=== PATIENT | male | born 1965 | race American Indian/Alaskan Native ===

== ENCOUNTER 2018-10-02 21:48 | Inpatient (IN) | payer MEDICARE ==
--- NOTE | 2018-10-02 22:29 | Emergency Department Report ---
Chief Complaint: Medical Clearance Stated Complaint: DIZZY, NEEDS DIALYSIS - HPI History of Present Illness: esrd pt no hd in 1.5 week co cp and sob to main MSE screening note: Focused history and physical exam performed. Due to findings the following was ordered: ED Disposition for MSE Condition: Stable
--- NOTE | 2018-10-03 00:08 | XRay Report ---
PROCEDURE: XR CHEST ROUTINE 2V TECHNIQUE: PA and lateral chest radiographs were obtained. HISTORY: sob COMPARISONS: None. FINDINGS: Heart: Heart is enlarged. Mediastinum/Vessels: Normal. Lungs/Pleural space: There is focal scarring or atelectasis at the left lung base. There are no infi ltrates, effusions or pneumothoraces.. Bony thorax: No acute osseous abnormality. IMPRESSION: Heart is enlarged. There is focal scarring or atelectasis at the left lung base. There are no infiltrates, effusions or pneumothoraces... This document is electronically signed by Maykel Lucio MD., October 03 2018 12:06:09 AM ET
[2018-10-03 01:16] LABS: Hematocrit 25.8 % (35.5-45.6); Hemoglobin 8.6 gm/dl (11.8-15.2); Mean Corpuscular HGB Conc 34 % (32-34); Mean Corpuscular Volume 99 fl (84-94); Platelet Count 287 K/mm3 (140-440); Red Blood Count 2.61 M/mm3 (3.65-5.03); Red Cell Distribution Width 18.7 % (13.2-15.2)
[2018-10-03 01:25] LABS: Albumin 3.6 g/dL (3.9-5); Calcium 7.6 mg/dL (8.4-10.2)
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
[2018-10-03] MEDS ORDERED: KIONEX PO ONE (04:50)
[2018-10-03] MEDS ORDERED: D50W (25GM) Vial IV ONE (08:39)
[2018-10-03] MEDS ORDERED: HumuLIN R IV STA (08:39)
--- NOTE | 2018-10-03 08:40 | History and Physical Report ---
History of Present Illness Date of examination: 10/03/18 Date of admission: 10/03/18 05:05 Chief complaint: Shortness of breath, gen weakness, missed dialysis History of present illness: Patient is 53 yo with HIV, ESRD on hemodialysis. He states that he has missed h emodialysis for 2 weeks, since he moved here from [place]. He presents with shortness of breath, occurs at rest and worse on exertion. He denies chest pain. No diaphoresis. No fever. He was evaluated in ED found to have Creatinine of 22.9 and potassium of 5.9. He was given Kayexalate for hyperkalemia. Patient states he does not have established Hemodialysis Center in [place], [place]. Will admit and consult nephrology and case management. Past History Past Medical History: ESRD, HIV/AIDS, hypertension Past Surgical History: hernia repair, Other (av fistula for dialysis) Social history: , full code. denies: smoking, alcohol abuse Family history: no significant family history Medications and Allergies Allergies Allergy/AdvReac Type Severity Reaction Status Date / Time No Known Allergies Allergy Verified 01/07/16 11:14 Home Medications Medication Instructions Recorded Confirmed Last Taken Type No Known Home Medications [No 10/03/18 10/03/18 Unknown History Reported Home Medications] Exam - Physical Exam Narrative exam: Gen: Not in acute distress, lying in bed HEENT: Normocephalic, atraumatic Neck: supple, no JVD Heart: S1 and S2 reg, no murmurs, rubs or gallop Lungs: Clear, no crackles Abd: soft, non tender, non distended, normal BS Ext: No edema, no clubbing, no cyanosis, left arm av fistula Neuro: AAO x 3, no focal signs, moves all ext Psych:Normal mood - Constitutional Vitals: Temp Pulse Resp BP Pulse Ox 97.5 F L 101 H 18 171/97 98 10/03/18 08:30 10/03/18 08:30 10/03/18 08:30 10/03/18 08:30 10/03/18 08:30 Results - Labs CBC & Chem 7: 10/04/18 05:25 10/04/18 05:25 Labs: Abnormal lab results 10/03/18 10/03/18 Range/Units 00:46 00:46 RBC 2.61 L (3.65-5.03) M/mm3 Hgb 8.6 L (11.8-15.2) gm/dl Hct 25.8 L (35.5-45.6) % MCV 99 H (84-94) fl MCH 33 H (28-32) pg RDW 18.7 H (13.2-15.2) % Potassium 5.8 H (3.6-5.0) mmol/L Chloride 97.9 L (98-107) mmol/L Carbon Dioxide 19 L (22-30) mmol/L BUN 106 H (9-20) mg/dL Creatinine 22.9 H (0.8-1.5) mg/dL Calcium 7.6 L (8.4-10.2) mg/dL Phosphorus 7.10 H (2.5-4.5) mg/dL Albumin 3.6 L (3.9-5) g/dL Assessment and Plan Hyperkalemia Potassium 5.9 Admit kayexalate given Insulin iv Calcium gluconate ESRD on hemodialysis Missed dialysis X 2 weeks since he moved here from [place]. Does not have established dialysis center in [place] Nephrology consulted case management HIV To obtain list of HAART and resume HTN Monitor BP Start Norvasc his home med list not available Full code status
[2018-10-03] MEDS ORDERED: ZOFRAN IV PRN (08:51)
[2018-10-03] MEDS ORDERED: SODIUM CHLORIDE FLUSH SYRINGE 10 ML IV PRN (08:51)
[2018-10-03] MEDS ORDERED: TYLENOL PO PRN (08:51)
[2018-10-03] MEDS ORDERED: PROVENTIL IH PRN (08:51)
[2018-10-03] MEDS ORDERED: D50W (25GM) Syringe IV ONE (09:00)
[2018-10-03] MEDS ORDERED: CALCIUM GLUCONATE 1,000 MG in NACL 0.9% 100 ML IV ONE (10:00)
[2018-10-03] MEDS: SODIUM CHLORIDE FLUSH SYRINGE 10 ML IV SCH ×2 (10:08→21:00)
[2018-10-03 13:30] LABS: Hepatitis B Surface Antigen Non-Reactive (Negative); Hepatitis C Virus Antibody Non-Reactive (NonReactive)
--- NOTE | 2018-10-03 13:57 | Consultation ---
History of Present Illness - History of Present Illness 53-year-old gentleman with medical history significant for hypertension, end- stage renal disease on dialysis [facility] on Monday via a left arm AV fistula recently moved from [facility] 2 weeks ago has not had dialysis for the past 2 weeks presents today requesting dialysis. Reports did not have dialysis placement prior to his move admits to weight gain shortness of breath doesn't have his prescriptions. Labs significant for hyperkalemia associated orthopnea denies fevers chills denies any chest pain Past History Past Medical History: ESRD, HIV/AIDS, hypertension Past Surgical History: hernia repair, Other (av fistula for dialysis) Social history: , full code. denies: smoking, alcohol abuse Family history: no significant family history Medications and Allergies Allergies Allergy/AdvReac Type Severity Reaction Status Date / Time No Known Allergies Allergy Verified 01/07/16 11:14 Home Medications Medication Instructions Recorded Confirmed Last Taken Type No Known Home Medications [No 10/03/18 10/03/18 Unknown History Reported Home Medications] Active Meds: Active Medications Acetaminophen (Tylenol) 650 mg PO Q4H PRN PRN Reason: Pain MILD(1-3)/Fever >100.5/BLOOD Acetaminophen/Hydrocodone Bitart ([place] 5/325) 1 each PO Q6H PRN PRN Reason: Pain, Moderate (4-6) Albuterol (Proventil) 2.5 mg IH Q4HRT PRN PRN Reason: Shortness Of Breath Ondansetron HCl (Zofran) 4 mg IV Q8H PRN PRN Reason: Nausea And Vomiting Sodium Chloride (Sodium Chloride Flush Syringe 10 Ml) 10 ml IV BID ONELIA Last Admin: 10/03/18 10:08 Dose: 10 ml Documented by: Sodium Chloride (Sodium Chloride Flush Syringe 10 Ml) 10 ml IV PRN PRN PRN Reason: LINE FLUSH Review of Systems Constitutional: no weight loss, no weight gain Cardiovascular: edema, shortness of breath, no chest pain, no orthopnea Respiratory: no cough, no cough with sputum Gastrointestinal: no abdominal pain, no nausea, no vomiting Genitourinary Male: no dysuria, no hematuria Musculoskeletal: no neck stiffness, no neck pain Integumentary: no deferred, no rash Neurological: no head injury, no transient paralysis Psychiatric: no anxiety Endocrine: no cold intolerance Allergic/Immunologic: no urticaria Exam - Vital Signs Vital signs: Vital Signs Temp Pulse Resp BP Pulse Ox 98.3 F 95 H 18 163/96 98 10/02/18 22:28 10/02/18 22:28 10/02/18 22:28 10/02/18 22:28 10/02/18 22:28 - General Appearance General appearance: well-developed, well-nourished EENT: ATNC, PERRL Neck: Present: neck supple Respiratory: Clear to Ascultation Heart: regular, S1S2 Gastrointestinal: Present: normal, normoactive bowel sounds Integumentary: no rash Neurologic: alert and oriented x3, CN 3-12 intact Musculoskeletal: Present: deferred Psychiatric: mood/affect appropriate Results - Lab Results 10/03/18 00:46 10/03/18 00:46 Most recent lab results Calcium 7.6 mg/dL (8.4-10.2) L 10/03/18 00:46 Phosphorus 7.10 mg/dL (2.5-4.5) H 10/03/18 00:46 - Image Kidney/bladder ultrasound: other (I reviewed CXR with cardiomegaly ,hazy opacities. ) Assessment and Plan - Patient Problems (1) ESRD (end stage renal disease) Current Visit: Yes Status: Acute Plan to address problem: End-stage renal disease Accesses left arm AV fistula Will initiate dialysis (2) Hyperkalemia Current Visit: Yes Status: Acute Plan to address problem: Hyperkalemia secondary to end-stage renal disease Received albuterol and calcium gluconate We'll initiate dialysis (3) HIV (human immunodeficiency virus infection) Current Visit: No Status: Acute Plan to address problem: HIV infection noted per chart Obtain HIV serologies Infectious disease evaluation (4) Acidosis Current Visit: Yes Status: Acute Plan to address problem: Acidosis secondary to renal failure in the setting of missed hemodialysis We'll initiate dialysis (5) Anemia in chronic kidney disease Current Visit: Yes Status: Acute Qualifiers: Chronic kidney disease stage: on chronic dialysis Qualified Code(s): N18.6 - End stage renal disease; D63.1 - Anemia in chronic kidney disease; Z99.2 - D ependence on renal dialysis Plan to address problem: Moderate anemia hemoglobin is 8.6g/dl Will initiate Epogen 20,000 units session of dialysis
--- NOTE | 2018-10-03 17:27 | Event Note ---
Hemodialysis note 53 year old with ESRD on hemodialysis in [place] recently moved to [place] BP: 172/89 Patient seen on dialysis Denies any complaints UF: 4L over 4hrs.
[2018-10-03] MEDS ORDERED: APRESOLINE IV PRN (18:47)
[2018-10-03] MEDS: APRESOLINE PO SCH ×2 (20:55→22:00)
[2018-10-03] MEDS: NORVASC PO SCH (20:56)
[2018-10-04 05:56] LABS: Basophils % (Auto) 0.4 % (0.0-1.8); Eosinophils # (Auto) 0.1 K/mm3 (0.0-0.4); Eosinophils % (Auto) 1.5 % (0.0-4.3); Hematocrit 25.6 % (35.5-45.6); Hemoglobin 8.6 gm/dl (11.8-15.2); Lymphocytes # (Auto) 1.2 K/mm3 (1.2-5.4); Lymphocytes % (Auto) 31.6 % (13.4-35.0); Mean Corpuscular HGB Conc 34 % (32-34); Mean Corpuscular Volume 98 fl (84-94); Monocytes # (Auto) 0.6 K/mm3 (0.0-0.8); Monocytes % (Auto) 14.8 % (0.0-7.3); Platelet Count 294 K/mm3 (140-440); Red Cell Distribution Width 18.2 % (13.2-15.2)
[2018-10-04 06:10] LABS: Calcium 8.4 mg/dL (8.4-10.2)
[2018-10-04] MEDS: APRESOLINE PO SCH ×3 (06:17→22:21)
[2018-10-04] MEDS ORDERED: NACL 0.9% 100 ML IV PRN (09:11)
[2018-10-04] MEDS: SODIUM CHLORIDE FLUSH SYRINGE 10 ML IV SCH ×2 (10:00→22:22)
--- NOTE | 2018-10-04 10:39 | Progress Note ---
Assessment and Plan - Patient Problems (1) ESRD (end stage renal disease) Current Visit: Yes Status: Acute (2) Hyperkalemia Current Visit: Yes Status: Acute (3) HIV (human immunodeficiency virus infection) Current Visit: No Status: Acute (4) Acidosis Current Visit: Yes Status: Acute (5) Anemia in chronic kidney disease Current Visit: Yes Status: Acute Qualifiers: Chronic kidney disease stage: on chronic dialysis Qualified Code(s): N18.6 - End stage renal disease; D63.1 - Anemia in chronic kidney disease; Z99.2 - Dependence on renal dialysis Objective - Vital Signs Vital signs: Vital Signs - 12hr 10/03/18 10/04/18 10/04/18 23:45 05:20 06:17 Temperature 98.0 F 98.0 F Pulse Rate 89 82 82 Respiratory 18 18 Rate Blood Pressure 146/84 143/93 159/97 O2 Sat by Pulse 97 99 Oximetry - Lab 10/04/18 05:25 10/04/18 05:25 Most recent lab results Calcium 8.4 mg/dL (8.4-10.2) 10/04/18 05:25 Phosphorus 7.10 mg/dL (2.5-4.5) H 10/03/18 00:46 Medications & Allergies - Medications Allergies/Adverse Reactions: Allergies No Known Allergies Allergy (Verified 01/07/16 11:14) Home Medications: Home Medications Medication Instructions Recorded Confirmed Last Taken Type No Known Home Medications [No 10/03/18 10/03/18 Unknown History Reported Home Medications] Active Medications: Generic Name Dose Route Start Last Admin Trade Name Freq PRN Reason Stop Dose Admin Acetaminophen 650 mg 10/03/18 08:51 Tylenol PO Q4H PRN Pain MILD(1-3)/Fever >100.5/BLOOD Acetaminophen/Hydrocodone Bitart 1 each 10/03/18 08:51 [place] 5/325 PO Q6H PRN Pain, Moderate (4-6) Albuterol 2.5 mg 10/03/18 08:51 Proventil IH Q4HRT PRN Shortness Of Breath Amlodipine Besylate 5 mg 10/03/18 19:00 10/03/18 20:56 Norvasc PO 5 mg QDAY ONELIA Administration Epoetin Jaswant 20,000 unit 10/03/18 15:00 Procrit IV .QMWF ONELIA Hydralazine HCl 50 mg 10/03/18 19:00 10/04/18 06:17 Apresoline PO 50 mg Q8HR ONELIA Administration Hydralazine HCl 10 mg 10/03/18 18:47 Apresoline IV Q4HR PRN SBP>170 or DBP>110 Sodium Chloride 100 mls @ 999 mls/hr 10/04/18 09:11 Nacl 0.9% IV GUERRERO PRN Hypotension Ondansetron HCl 4 mg 10/03/18 08:51 Zofran IV Q8H PRN Nausea And Vomiting Sodium Chloride 10 ml 10/03/18 10:00 10/03/18 21:00 Sodium Chloride Flush Syringe 10 Ml IV 10 ml BID ONELIA Administration Sodium Chloride 10 ml 10/03/18 08:51 Sodium Chloride Flush Syringe 10 Ml IV PRN PRN LINE FLUSH
[2018-10-04] MEDS: PROCRIT IV SCH (13:30)
[2018-10-04] MEDS ORDERED: NACL 0.9 (PRIMING MACHINE ONLY DIALYSIS) MC ONE (13:36)
[2018-10-04] MEDS: NORVASC PO SCH (14:56)
--- NOTE | 2018-10-04 17:05 | Progress Note ---
Assessment and Plan Assessment and plan: Hyperkalemia Now resolved after dialysis, and kayexalate given ESRD on hemodialysis Missed dialysis X 2 weeks since he moved here from [place]. Does not have established dialysis center in [place] Nephrology following case management working on arrangements HIV To obtain list of HAART and resume HTN Monitor BP Continue Norvasc his home med list not available Full code status History Interval history: Feels better No SOB currently Hospitalist Physical - Physical exam Narrative exam: Gen: Not in acute distress, lying in bed HEENT: Normocephalic, atraumatic Neck: supple, no JVD Heart: S1 and S2 reg, no murmurs, rubs or gallop Lungs: Clear, no crackles Abd: soft, non tender, non distended, normal BS Ext: No edema, no clubbing, no cyanosis, left arm av fistula Neuro: AAO x 3, no focal signs, moves all ext Psych:Normal mood - Constitutional Vitals: Temp Pulse Resp BP Pulse Ox 98.0 F 77 18 168/93 99 10/04/18 14:00 10/04/18 14:56 10/04/18 14:00 10/04/18 14:56 10/04/18 05:20 Results - Labs CBC & Chem 7: 10/04/18 05:25 10/04/18 05:25 Labs: Laboratory Last Values WBC 3.8 K/mm3 (4.5-11.0) L 10/04/18 05:25 RBC 2.60 M/mm3 (3.65-5.03) L 10/04/18 05:25 Hgb 8.6 gm/dl (11.8-15.2) L 10/04/18 05:25 Hct 25.6 % (35.5-45.6) L 10/04/18 05:25 MCV 98 fl (84-94) H 10/04/18 05:25 MCH 33 pg (28-32) H 10/04/18 05:25 MCHC 34 % (32-34) 10/04/18 05:25 RDW 18.2 % (13.2-15.2) H 10/04/18 05:25 Plt Count 294 K/mm3 (140-440) 10/04/18 05:25 Lymph % (Auto) 31.6 % (13.4-35.0) 10/04/18 05:25 [place] % (Auto) 14.8 % (0.0-7.3) H 10/04/18 05:25 Eos % (Auto) 1.5 % (0.0-4.3) 10/04/18 05:25 Baso % (Auto) 0.4 % (0.0-1.8) 10/04/18 05:25 Lymph # 1.2 K/mm3 (1.2-5.4) 10/04/18 05:25 [place] # 0.6 K/mm3 (0.0-0.8) 10/04/18 05:25 Eos # 0.1 K/mm3 (0.0-0.4) 10/04/18 05:25 Baso # 0.0 K/mm3 (0.0-0.1) 10/04/18 05:25 Seg Neutrophils % 51.7 % (40.0-70.0) 10/04/18 05:25 Seg Neutrophils # 2.0 K/mm3 (1.8-7.7) 10/04/18 05:25 Sodium 141 mmol/L (137-145) 10/04/18 05:25 Potassium 4.3 mmol/L (3.6-5.0) D 10/04/18 05:25 Chloride 98.1 mmol/L (98-107) 10/04/18 05:25 Carbon Dioxide 26 mmol/L (22-30) D 10/04/18 05:25 Anion Gap 21 mmol/L 10/04/18 05:25 BUN 47 mg/dL (9-20) H 10/04/18 05:25 Creatinine 13.2 mg/dL (0.8-1.5) H 10/04/18 05:25 Estimated GFR 5 ml/min 10/04/18 05:25 BUN/Creatinine Ratio 4 % 10/04/18 05:25 Glucose 75 mg/dL (75-100) 10/04/18 05:25 Calcium 8.4 mg/dL (8.4-10.2) 10/04/18 05:25 Phosphorus 7.10 mg/dL (2.5-4.5) H 10/03/18 00:46 Total Bilirubin 0.20 mg/dL (0.1-1.2) 10/03/18 00:46 AST 26 units/L (5-40) 10/03/18 00:46 ALT 11 units/L (7-56) 10/03/18 00:46 Alkaline Phosphatase 60 units/L (35-129) 10/03/18 00:46 Total Protein 7.8 g/dL (6.3-8.2) 10/03/18 00:46 Albumin 3.6 g/dL (3.9-5) L 10/03/18 00:46 Albumin/Globulin Ratio 0.9 % 10/03/18 00:46 Hepatitis A IgM Ab Non-reactive (NonReactive) 10/03/18 09:13 Hep Bs Antigen Non-reactive (Negative) 10/03/18 09:13 Hep B Core IgM Ab Non-reactive (NonReactive) 10/03/18 09:13 Hepatitis C Antibody Non-reactive (NonReactive) 10/03/18 09:13 Active Medications - Current Medications Current Medications: Generic Name Dose Route Start Last Admin Trade Name Freq PRN Reason Stop Dose Admin Acetaminophen 650 mg 10/03/18 08:51 Tylenol PO Q4H PRN Pain MILD(1-3)/Fever >100.5/BLOOD Acetaminophen/Hydrocodone Bitart 1 each 10/03/18 08:51 [place] 5/325 PO Q6H PRN Pain, Moderate (4-6) Albuterol 2.5 mg 10/03/18 08:51 Proventil IH Q4HRT PRN Shortness Of Breath Amlodipine Besylate 5 mg 10/03/18 19:00 10/04/18 14:56 Norvasc PO 5 mg QDAY ONELIA Administration Epoetin Jaswant 20,000 unit 10/03/18 15:00 10/04/18 13:30 Procrit IV 20,000 unit .QMWF ONELIA Administration Hydralazine HCl 50 mg 10/03/18 19:00 10/04/18 14:56 Apresoline PO 50 mg Q8HR ONELIA Administration Hydralazine HCl 10 mg 10/03/18 18:47 Apresoline IV Q4HR PRN SBP>170 or DBP>110 Sodium Chloride 100 mls @ 999 mls/hr 10/04/18 09:11 Nacl 0.9% IV GUERRERO PRN Hypotension Ondansetron HCl 4 mg 10/03/18 08:51 Zofran IV Q8H PRN Nausea And Vomiting Sodium Chloride 10 ml 10/03/18 10:00 10/04/18 10:00 Sodium Chloride Flush Syringe 10 Ml IV 10 ml BID ONELIA Administration Sodium Chloride 10 ml 10/03/18 08:51 Sodium Chloride Flush Syringe 10 Ml IV PRN PRN LINE FLUSH
--- NOTE | 2018-10-04 17:55 | Progress Note ---
Assessment and Plan - Patient Problems (1) ESRD (end stage renal disease) Current Visit: Yes Status: Acute Plan to address problem: End-stage renal disease Accesses left arm AV fistula Repeat dialysis today (2) Hyperkalemia Current Visit: Yes Status: Acute Plan to address problem: Hyperkalemia secondary to end-stage renal disease Received albuterol and calcium gluconate continue dialysis TTS. (3) HIV (human immunodeficiency virus infection) Current Visit: No Status: Acute Plan to address problem: HIV infection noted per chart Obtain HIV serologies Infectious disease evaluation (4) Acidosis Current Visit: Yes Status: Acute Plan to address problem: Acidosis secondary to renal failure in the setting of missed hemodialysis continue dialysis (5) Anemia in chronic kidney disease Current Visit: Yes Status: Acute Qualifiers: Chronic kidney disease stage: on chronic dialysis Qualified Code(s): N18.6 - End stage renal disease; D63.1 - Anemia in chronic kidney disease; Z99.2 - Dependence on renal dialysis Plan to address problem: Moderate anemia hemoglobin is 8.6g/dl continue Epogen 20,000 units session of dialysis Subjective Interval history: 53-year-old gentleman with medical history significant for hypertension, end[facility] recently moved from [facility] 2 weeks ago has not had dialysis for the past 2 weeks presents today requesting dialysis. Patient is seen today I attest I saw the patient on hemodialysis at 10:30am Denies any complaints. no shortness of breath ,fever or chills. Objective - Vital Signs Vital signs: Vital Signs - 12hr 10/04/18 10/04/18 10/04/18 06:17 10:10 10:15 Temperature 98.0 F Pulse Rate 82 105 H 105 H Respiratory 18 Rate Blood Pressure 159/97 153/96 158/94 O2 Sat by Pulse Oximetry 10/04/18 10/04/18 10/04/18 10:30 10:45 11:00 Temperature Pulse Rate 81 81 80 Respiratory Rate Blood Pressure 162/88 162/93 165/93 O2 Sat by Pulse Oximetry 10/04/18 10/04/18 10/04/18 11:15 11:30 11:45 Temperature Pulse Rate 80 79 81 Respiratory Rate Blood Pressure 168/93 170/90 165/79 O2 Sat by Pulse Oximetry 10/04/18 10/04/18 10/04/18 12:00 12:15 12:30 Temperature Pulse Rate 76 74 76 Respiratory Rate Blood Pressure 167/97 160/96 167/93 O2 Sat by Pulse Oximetry 10/04/18 10/04/18 10/04/18 12:45 13:00 13:15 Temperature Pulse Rate 74 77 77 Respiratory Rate Blood Pressure 155/94 161/94 164/94 O2 Sat by Pulse Oximetry 10/04/18 10/04/18 10/04/18 13:30 13:40 14:00 Temperature 98.0 F Pulse Rate 78 85 81 Respiratory 18 Rate Blood Pressure 151/95 150/81 170/90 O2 Sat by Pulse Oximetry 10/04/18 10/04/18 14:56 17:02 Temperature 98.3 F Pulse Rate 77 87 Respiratory 22 Rate Blood Pressure 168/93 156/95 O2 Sat by Pulse 100 Oximetry - General Appearance General appearance: well-developed, well-nourished EENT: ATNC, PERRL, mucous membranes moist Neck: no JVD Respiratory: Present: Clear to Ascultation Cardiology: regular, S1S2 Gastrointestinal: normal, normoactive bowel sounds Integumentary: no rash Neurologic: alert and oriented x3, CN 3-12 intact Psychiatric: mood/affect appropriate - Lab 10/04/18 05:25 10/04/18 05:25 Most recent lab results Calcium 8.4 mg/dL (8.4-10.2) 10/04/18 05:25 Phosphorus 7.10 mg/dL (2.5-4.5) H 10/03/18 00:46 - Imaging Chest x-ray: image reviewed (I reviewed CXR with hazy opacities. ) Medications & Allergies - Medications Allergies/Adverse Reactions: Allergies No Known Allergies Allergy (Verified 01/07/16 11:14) Home Medications: Home Medications Medication Instructions Recorded Confirmed Last Taken Type No Known Home Medications [No 10/03/18 10/03/18 Unknown History Reported Home Medications] Active Medications: Generic Name Dose Route Start Last Admin Trade Name Freq PRN Reason Stop Dose Admin Acetaminophen 650 mg 10/03/18 08:51 Tylenol PO Q4H PRN Pain MILD(1-3)/Fever >100.5/BLOOD Acetaminophen/Hydrocodone Bitart 1 each 10/03/18 08:51 [place] 5/325 PO Q6H PRN Pain, Moderate (4-6) Albuterol 2.5 mg 10/03/18 08:51 Proventil IH Q4HRT PRN Shortness Of Breath Amlodipine Besylate 5 mg 10/03/18 19:00 10/04/18 14:56 Norvasc PO 5 mg QDAY ONELIA Administration Epoetin Jaswant 20,000 unit 10/03/18 15:00 10/04/18 13:30 Procrit IV 20,000 unit .QMWF ONELIA Administration Hydralazine HCl 50 mg 10/03/18 19:00 10/04/18 14:56 Apresoline PO 50 mg Q8HR ONELIA Administration Hydralazine HCl 10 mg 10/03/18 18:47 Apresoline IV Q4HR PRN SBP>170 or DBP>110 Sodium Chloride 100 mls @ 999 mls/hr 10/04/18 09:11 Nacl 0.9% IV GUERRERO PRN Hypotension Ondansetron HCl 4 mg 10/03/18 08:51 Zofran IV Q8H PRN Nausea And Vomiting Sodium Chloride 10 ml 10/03/18 10:00 10/04/18 10:00 Sodium Chloride Flush Syringe 10 Ml IV 10 ml BID ONELIA Administration Sodium Chloride 10 ml 10/03/18 08:51 Sodium Chloride Flush Syringe 10 Ml IV PRN PRN LINE FLUSH
[2018-10-04] MEDS: NORCO 5/325 PO PRN (22:20)
[2018-10-05] MEDS: APRESOLINE PO SCH ×3 (06:26→21:03)
--- NOTE | 2018-10-05 12:28 | Progress Note ---
Assessment and Plan Assessment and plan: Hyperkalemia Now resolved after dialysis, and kayexalate given ESRD on hemodialysis Missed dialysis X 2 weeks since he moved here from [place]. Does not have established dialysis center in [place] Nephrology following case management working on arrangements HIV To obtain list of HAART and resume HTN Monitor BP Continue Norvasc his home med list not available Full code status Medically stable for discharge. awaiting outpatient hemodialysis arrangements. History Interval history: Feels better No SOB currently Hospitalist Physical - Physical exam Narrative exam: Gen: Not in acute distress, lying in bed HEENT: Normocephalic, atraumatic Neck: supple, no JVD Heart: S1 and S2 reg, no murmurs, rubs or gallop Lungs: Clear, no crackles Abd: soft, non tender, non distended, normal BS Ext: No edema, no clubbing, no cyanosis, left arm av fistula Neuro: AAO x 3, no focal signs, moves all ext Psych:Normal mood - Constitutional Vitals: Temp Pulse Resp BP Pulse Ox 98.3 F 94 H 18 172/91 96 10/05/18 09:30 10/05/18 10:45 10/05/18 09:30 10/05/18 10:45 10/05/18 08:51 Results - Labs CBC & Chem 7: 10/04/18 05:25 10/04/18 05:25 Labs: Laboratory Last Values WBC 3.8 K/mm3 (4.5-11.0) L 10/04/18 05:25 RBC 2.60 M/mm3 (3.65-5.03) L 10/04/18 05:25 Hgb 8.6 gm/dl (11.8-15.2) L 10/04/18 05:25 Hct 25.6 % (35.5-45.6) L 10/04/18 05:25 MCV 98 fl (84-94) H 10/04/18 05:25 MCH 33 pg (28-32) H 10/04/18 05:25 MCHC 34 % (32-34) 10/04/18 05:25 RDW 18.2 % (13.2-15.2) H 10/04/18 05:25 Plt Count 294 K/mm3 (140-440) 10/04/18 05:25 Lymph % (Auto) 31.6 % (13.4-35.0) 10/04/18 05:25 [place] % (Auto) 14.8 % (0.0-7.3) H 10/04/18 05:25 Eos % (Auto) 1.5 % (0.0-4.3) 10/04/18 05:25 Baso % (Auto) 0.4 % (0.0-1.8) 10/04/18 05:25 Lymph # 1.2 K/mm3 (1.2-5.4) 10/04/18 05:25 [place] # 0.6 K/mm3 (0.0-0.8) 10/04/18 05:25 Eos # 0.1 K/mm3 (0.0-0.4) 10/04/18 05:25 Baso # 0.0 K/mm3 (0.0-0.1) 10/04/18 05:25 Seg Neutrophils % 51.7 % (40.0-70.0) 10/04/18 05:25 Seg Neutrophils # 2.0 K/mm3 (1.8-7.7) 10/04/18 05:25 Sodium 141 mmol/L (137-145) 10/04/18 05:25 Potassium 4.3 mmol/L (3.6-5.0) D 10/04/18 05:25 Chloride 98.1 mmol/L (98-107) 10/04/18 05:25 Carbon Dioxide 26 mmol/L (22-30) D 10/04/18 05:25 Anion Gap 21 mmol/L 10/04/18 05:25 BUN 47 mg/dL (9-20) H 10/04/18 05:25 Creatinine 13.2 mg/dL (0.8-1.5) H 10/04/18 05:25 Estimated GFR 5 ml/min 10/04/18 05:25 BUN/Creatinine Ratio 4 % 10/04/18 05:25 Glucose 75 mg/dL (75-100) 10/04/18 05:25 Calcium 8.4 mg/dL (8.4-10.2) 10/04/18 05:25 Phosphorus 7.10 mg/dL (2.5-4.5) H 10/03/18 00:46 Total Bilirubin 0.20 mg/dL (0.1-1.2) 10/03/18 00:46 AST 26 units/L (5-40) 10/03/18 00:46 ALT 11 units/L (7-56) 10/03/18 00:46 Alkaline Phosphatase 60 units/L (35-129) 10/03/18 00:46 Total Protein 7.8 g/dL (6.3-8.2) 10/03/18 00:46 Albumin 3.6 g/dL (3.9-5) L 10/03/18 00:46 Albumin/Globulin Ratio 0.9 % 10/03/18 00:46 Hepatitis A IgM Ab Non-reactive (NonReactive) 10/03/18 09:13 Hep Bs Antigen Non-reactive (Negative) 10/03/18 09:13 Hep B Core IgM Ab Non-reactive (NonReactive) 10/03/18 09:13 Hepatitis C Antibody Non-reactive (NonReactive) 10/03/18 09:13 Active Medications - Current Medications Current Medications: Generic Name Dose Route Start Last Admin Trade Name Freq PRN Reason Stop Dose Admin Acetaminophen 650 mg 10/03/18 08:51 Tylenol PO Q4H PRN Pain MILD(1-3)/Fever >100.5/BLOOD Acetaminophen/Hydrocodone Bitart 1 each 10/03/18 08:51 10/04/18 22:20 [place] 5/325 PO 1 each Q6H PRN Administration Pain, Moderate (4-6) Albuterol 2.5 mg 10/03/18 08:51 Proventil IH Q4HRT PRN Shortness Of Breath Amlodipine Besylate 5 mg 10/03/18 19:00 10/04/18 14:56 Norvasc PO 5 mg QDAY ONELIA Administration Epoetin Jaswant 20,000 unit 10/03/18 15:00 10/04/18 13:30 Procrit IV 20,000 unit .QMWF ONELIA Administration Hydralazine HCl 50 mg 10/03/18 19:00 10/05/18 06:26 Apresoline PO 50 mg Q8HR ONELIA Administration Hydralazine HCl 10 mg 10/03/18 18:47 Apresoline IV Q4HR PRN SBP>170 or DBP>110 Sodium Chloride 100 mls @ 999 mls/hr 10/04/18 09:11 Nacl 0.9% IV GUERRERO PRN Hypotension Ondansetron HCl 4 mg 10/03/18 08:51 Zofran IV Q8H PRN Nausea And Vomiting Sodium Chloride 10 ml 10/03/18 10:00 10/04/18 22:22 Sodium Chloride Flush Syringe 10 Ml IV 10 ml BID ONELIA Administration Sodium Chloride 10 ml 10/03/18 08:51 Sodium Chloride Flush Syringe 10 Ml IV PRN PRN LINE FLUSH
[2018-10-05] MEDS ORDERED: NACL 0.9 (PRIMING MACHINE ONLY DIALYSIS) MC ONE (12:35)
[2018-10-05] MEDS: PROCRIT IV SCH (13:01)
[2018-10-05] MEDS: SODIUM CHLORIDE FLUSH SYRINGE 10 ML IV SCH ×2 (14:30→21:03)
[2018-10-05] MEDS: NORVASC PO SCH (14:30)
--- NOTE | 2018-10-05 16:47 | Progress Note ---
Assessment and Plan - Patient Problems (1) ESRD (end stage renal disease) Current Visit: Yes Status: Acute Plan to address problem: End-stage renal disease Accesses left arm AV fistula New transfer to [facility] is being arranged at [facility]. Repeat dialysis today Next diaysis session will be Monday received dialysis on Monday, and Monday. (2) Hyperkalemia Current Visit: Yes Status: Acute Plan to address problem: Hyperkalemia secondary to end-stage renal disease Received albuterol and calcium gluconate continue dialysis TTS. (3) HIV (human immunodeficiency virus infection) Current Visit: No Status: Acute Plan to address problem: HIV infection noted per chart Obtain HIV serologies Infectious disease evaluation (4) Acidosis Current Visit: Yes Status: Acute Plan to address problem: Acidosis secondary to renal failure in the setting of missed hemodialysis continue dialysis (5) Anemia in chronic kidney disease Current Visit: Yes Status: Acute Qualifiers: Chronic kidney disease stage: on chronic dialysis Qualified Code(s): N18.6 - End stage renal disease; D63.1 - Anemia in chronic kidney disease; Z99.2 - Dependence on renal dialysis Plan to address problem: Moderate anemia hemoglobin is 8.6g/dl continue Epogen 20,000 units session of dialysis Subjective Interval history: 53-year-old gentleman with medical history significant for hypertension, end- stage renal disease on dialysis [facility] on Monday via a left arm AV fistula recently moved from [facility] 2 weeks ago has not had dialysis for the past 2 weeks presents today requesting dialysis. Patient is seen today I attest I saw the patient on hemodialysis at 10:30am request double portion of meals and snacks because "his protein levels are low Denies any complaints. no shortness of breath ,fever or chills. Objective - Vital Signs Vital signs: Vital Signs - 12hr 10/05/18 10/05/18 10/05/18 06:26 06:27 08:51 Temperature 98.2 F Pulse Rate 96 H 96 H Respiratory 20 Rate Blood Pressure 152/102 Blood Pressure 152/102 [Right] O2 Sat by Pulse 96 96 Oximetry 10/05/18 10/05/18 10/05/18 09:30 09:35 09:45 Temperature 98.3 F Pulse Rate 111 H 112 H 87 Respiratory 18 Rate Blood Pressure 169/101 169/96 176/95 Blood Pressure [Right] O2 Sat by Pulse Oximetry 10/05/18 10/05/18 10/05/18 10:00 10:15 10:30 Temperature Pulse Rate 84 88 87 Respiratory Rate Blood Pressure 162/90 171/96 168/98 Blood Pressure [Right] O2 Sat by Pulse Oximetry 10/05/18 10/05/18 10/05/18 10:45 11:00 11:15 Temperature Pulse Rate 94 H 86 91 H Respiratory Rate Blood Pressure 172/91 161/97 168/96 Blood Pressure [Right] O2 Sat by Pulse Oximetry 10/05/18 10/05/18 10/05/18 11:30 11:45 12:00 Temperature Pulse Rate 93 H 114 H 64 Respiratory Rate Blood Pressure 168/98 180/104 171/112 Blood Pressure [Right] O2 Sat by Pulse Oximetry 10/05/18 10/05/18 10/05/18 12:15 12:30 12:45 Temperature Pulse Rate 66 111 H 113 H Respiratory Rate Blood Pressure 170/104 177/104 180/103 Blood Pressure [Right] O2 Sat by Pulse Oximetry 10/05/18 10/05/18 10/05/18 13:00 13:15 13:30 Temperature Pulse Rate 90 61 62 Respiratory Rate Blood Pressure 202/97 170/101 167/100 Blood Pressure [Right] O2 Sat by Pulse Oximetry 10/05/18 10/05/18 10/05/18 13:50 14:29 14:30 Temperature 97.8 F Pulse Rate 92 H 113 H Respiratory 18 Rate Blood Pressure 173/91 173/91 173/91 Blood Pressure [Right] O2 Sat by Pulse Oximetry - General Appearance General appearance: well-developed, well-nourished EENT: ATNC, PERRL Neck: no JVD Respiratory: Present: Clear to Ascultation Cardiology: regular, S1S2 Gastrointestinal: normal, normoactive bowel sounds Integumentary: no rash Neurologic: no focal deficit, CN 3-12 intact Psychiatric: mood/affect appropriate - Lab 10/04/18 05:25 10/04/18 05:25 Most recent lab results Calcium 8.4 mg/dL (8.4-10.2) 10/04/18 05:25 Phosphorus 7.10 mg/dL (2.5-4.5) H 10/03/18 00:46 - Imaging Chest x-ray: image reviewed (I reviewed CXR with patchy opacities. ) Medications & Allergies - Medications Allergies/Adverse Reactions: Allergies No Known Allergies Allergy (Verified 01/07/16 11:14) Home Medications: Home Medications Medication Instructions Recorded Confirmed Last Taken Type No Known Home Medications [No 10/03/18 10/03/18 Unknown History Reported Home Medications] Active Medications: Generic Name Dose Route Start Last Admin Trade Name Freq PRN Reason Stop Dose Admin Acetaminophen 650 mg 10/03/18 08:51 Tylenol PO Q4H PRN Pain MILD(1-3)/Fever >100.5/BLOOD Acetaminophen/Hydrocodone Bitart 1 each 10/03/18 08:51 10/04/18 22:20 [place] 5/325 PO 1 each Q6H PRN Administration Pain, Moderate (4-6) Albuterol 2.5 mg 10/03/18 08:51 Proventil IH Q4HRT PRN Shortness Of Breath Amlodipine Besylate 5 mg 10/03/18 19:00 10/05/18 14:30 Norvasc PO 5 mg QDAY ONELIA Administration Epoetin Jaswant 20,000 unit 10/03/18 15:00 10/05/18 13:01 Procrit IV 20,000 unit .QMWF ONELIA Administration Hydralazine HCl 50 mg 10/03/18 19:00 10/05/18 14:29 Apresoline PO 50 mg Q8HR ONELIA Administration Hydralazine HCl 10 mg 10/03/18 18:47 Apresoline IV Q4HR PRN SBP>170 or DBP>110 Sodium Chloride 100 mls @ 999 mls/hr 10/04/18 09:11 Nacl 0.9% IV GUERRERO PRN Hypotension Ondansetron HCl 4 mg 10/03/18 08:51 Zofran IV Q8H PRN Nausea And Vomiting Sodium Chloride 10 ml 10/03/18 10:00 10/05/18 14:30 Sodium Chloride Flush Syringe 10 Ml IV 10 ml BID ONELIA Administration Sodium Chloride 10 ml 10/03/18 08:51 Sodium Chloride Flush Syringe 10 Ml IV PRN PRN LINE FLUSH
[2018-10-06] MEDS: APRESOLINE PO SCH ×3 (06:32→22:24)
[2018-10-06] MEDS: NORVASC PO SCH (11:12)
[2018-10-06] MEDS: SODIUM CHLORIDE FLUSH SYRINGE 10 ML IV SCH ×2 (11:14→22:25)
--- NOTE | 2018-10-06 13:07 | Progress Note ---
Assessment and Plan Impression: * End stage renal disease on intermittent HD * Uremia * Hyperkalemia * Hypertension * HIV * Anemia secondary to ESRD * Secondary hyperparathyroidism Plan: * Continue HD MWF * UF as tolerated * Continue antiHTN medications * Renal diet * Binders with meals * Epogen TIW prn * Outpatient dialysis clinic placement in progress Subjective Date of service: 10/06/18 Interval history: Patient has no complaints today. Objective - Vital Signs Vital signs: Vital Signs - 12hr 10/06/18 10/06/18 10/06/18 06:13 06:32 11:12 Temperature 97.8 F Pulse Rate 88 88 103 H Respiratory 20 Rate Blood Pressure 147/88 147/88 133/85 O2 Sat by Pulse 99 Oximetry - General Appearance General appearance: well-developed, well-nourished EENT: ATNC Respiratory: Present: Clear to Ascultation Cardiology: regular, S1S2 Gastrointestinal: normal Integumentary: no rash, warm and dry Neurologic: no focal deficit Musculoskeletal: other (no edema; NOLAN AVF +bruit) - Lab 10/04/18 05:25 10/04/18 05:25 Most recent lab results Calcium 8.4 mg/dL (8.4-10.2) 10/04/18 05:25 Phosphorus 7.10 mg/dL (2.5-4.5) H 10/03/18 00:46 Medications & Allergies - Medications Allergies/Adverse Reactions: Allergies No Known Allergies Allergy (Verified 01/07/16 11:14) Home Medications: Home Medications Medication Instructions Recorded Confirmed Last Taken Type No Known Home Medications [No 10/03/18 10/03/18 Unknown History Reported Home Medications] Active Medications: Generic Name Dose Route Start Last Admin Trade Name Freq PRN Reason Stop Dose Admin Acetaminophen 650 mg 10/03/18 08:51 Tylenol PO Q4H PRN Pain MILD(1-3)/Fever >100.5/BLOOD Acetaminophen/Hydrocodone Bitart 1 each 10/03/18 08:51 10/04/18 22:20 [place] 5/325 PO 1 each Q6H PRN Administration Pain, Moderate (4-6) Albuterol 2.5 mg 10/03/18 08:51 Proventil IH Q4HRT PRN Shortness Of Breath Amlodipine Besylate 5 mg 10/03/18 19:00 10/06/18 11:12 Norvasc PO 5 mg QDAY ONELIA Administration Epoetin Jaswant 20,000 unit 10/03/18 15:00 10/05/18 13:01 Procrit IV 20,000 unit .QMWF ONELIA Administration Hydralazine HCl 50 mg 10/03/18 19:00 10/06/18 06:32 Apresoline PO 50 mg Q8HR ONELIA Administration Hydralazine HCl 10 mg 10/03/18 18:47 Apresoline IV Q4HR PRN SBP>170 or DBP>110 Sodium Chloride 100 mls @ 999 mls/hr 10/04/18 09:11 Nacl 0.9% IV GUERRERO PRN Hypotension Ondansetron HCl 4 mg 10/03/18 08:51 Zofran IV Q8H PRN Nausea And Vomiting Sodium Chloride 10 ml 10/03/18 10:00 10/06/18 11:14 Sodium Chloride Flush Syringe 10 Ml IV 10 ml BID ONELIA Administration Sodium Chloride 10 ml 10/03/18 08:51 Sodium Chloride Flush Syringe 10 Ml IV PRN PRN LINE FLUSH
--- NOTE | 2018-10-06 13:17 | Progress Note ---
Assessment and Plan Assessment and plan: Hyperkalemia Now resolved after dialysis, and kayexalate given ESRD on hemodialysis Missed dialysis X 2 weeks since he moved here from [place]. Does not have established dialysis center in [place] Nephrology following case management working on arrangements HIV To obtain list of HAART and resume HTN Monitor BP Continue Norvasc his home med list not available Full code status Medically stable for discharge. awaiting outpatient hemodialysis arrangements. History Interval history: Feels better No SOB currently No chest pain Hospitalist Physical - Physical exam Narrative exam: Gen: Not in acute distress, lying in bed HEENT: Normocephalic, atraumatic Neck: supple, no JVD Heart: S1 and S2 reg, no murmurs, rubs or gallop Lungs: Clear, no crackles Abd: soft, non tender, non distended, normal BS Ext: No edema, no clubbing, no cyanosis, left arm av fistula Neuro: AAO x 3, no focal signs, moves all ext Psych:Normal mood - Constitutional Vitals: Temp Pulse Resp BP Pulse Ox 97.8 F 103 H 20 133/85 99 10/06/18 06:13 10/06/18 11:12 10/06/18 06:13 10/06/18 11:12 10/06/18 06:13 Results - Labs CBC & Chem 7: 10/04/18 05:25 10/04/18 05:25 Labs: Laboratory Last Values WBC 3.8 K/mm3 (4.5-11.0) L 10/04/18 05:25 RBC 2.60 M/mm3 (3.65-5.03) L 10/04/18 05:25 Hgb 8.6 gm/dl (11.8-15.2) L 10/04/18 05:25 Hct 25.6 % (35.5-45.6) L 10/04/18 05:25 MCV 98 fl (84-94) H 10/04/18 05:25 MCH 33 pg (28-32) H 10/04/18 05:25 MCHC 34 % (32-34) 10/04/18 05:25 RDW 18.2 % (13.2-15.2) H 10/04/18 05:25 Plt Count 294 K/mm3 (140-440) 10/04/18 05:25 Lymph % (Auto) 31.6 % (13.4-35.0) 10/04/18 05:25 [place] % (Auto) 14.8 % (0.0-7.3) H 10/04/18 05:25 Eos % (Auto) 1.5 % (0.0-4.3) 10/04/18 05:25 Baso % (Auto) 0.4 % (0.0-1.8) 10/04/18 05:25 Lymph # 1.2 K/mm3 (1.2-5.4) 10/04/18 05:25 [place] # 0.6 K/mm3 (0.0-0.8) 10/04/18 05:25 Eos # 0.1 K/mm3 (0.0-0.4) 10/04/18 05:25 Baso # 0.0 K/mm3 (0.0-0.1) 10/04/18 05:25 Seg Neutrophils % 51.7 % (40.0-70.0) 10/04/18 05:25 Seg Neutrophils # 2.0 K/mm3 (1.8-7.7) 10/04/18 05:25 Sodium 141 mmol/L (137-145) 10/04/18 05:25 Potassium 4.3 mmol/L (3.6-5.0) D 10/04/18 05:25 Chloride 98.1 mmol/L (98-107) 10/04/18 05:25 Carbon Dioxide 26 mmol/L (22-30) D 10/04/18 05:25 Anion Gap 21 mmol/L 10/04/18 05:25 BUN 47 mg/dL (9-20) H 10/04/18 05:25 Creatinine 13.2 mg/dL (0.8-1.5) H 10/04/18 05:25 Estimated GFR 5 ml/min 10/04/18 05:25 BUN/Creatinine Ratio 4 % 10/04/18 05:25 Glucose 75 mg/dL (75-100) 10/04/18 05:25 Calcium 8.4 mg/dL (8.4-10.2) 10/04/18 05:25 Phosphorus 7.10 mg/dL (2.5-4.5) H 10/03/18 00:46 Total Bilirubin 0.20 mg/dL (0.1-1.2) 10/03/18 00:46 AST 26 units/L (5-40) 10/03/18 00:46 ALT 11 units/L (7-56) 10/03/18 00:46 Alkaline Phosphatase 60 units/L (35-129) 10/03/18 00:46 Total Protein 7.8 g/dL (6.3-8.2) 10/03/18 00:46 Albumin 3.6 g/dL (3.9-5) L 10/03/18 00:46 Albumin/Globulin Ratio 0.9 % 10/03/18 00:46 Hepatitis A IgM Ab Non-reactive (NonReactive) 10/03/18 09:13 Hep Bs Antigen Non-reactive (Negative) 10/03/18 09:13 Hep B Core IgM Ab Non-reactive (NonReactive) 10/03/18 09:13 Hepatitis C Antibody Non-reactive (NonReactive) 10/03/18 09:13 Active Medications - Current Medications Current Medications: Generic Name Dose Route Start Last Admin Trade Name Freq PRN Reason Stop Dose Admin Acetaminophen 650 mg 10/03/18 08:51 Tylenol PO Q4H PRN Pain MILD(1-3)/Fever >100.5/BLOOD Acetaminophen/Hydrocodone Bitart 1 each 10/03/18 08:51 10/04/18 22:20 [place] 5/325 PO 1 each Q6H PRN Administration Pain, Moderate (4-6) Albuterol 2.5 mg 10/03/18 08:51 Proventil IH Q4HRT PRN Shortness Of Breath Amlodipine Besylate 5 mg 10/03/18 19:00 10/06/18 11:12 Norvasc PO 5 mg QDAY ONELIA Administration Epoetin Jaswant 20,000 unit 10/03/18 15:00 10/05/18 13:01 Procrit IV 20,000 unit .QMWF ONELIA Administration Hydralazine HCl 50 mg 10/03/18 19:00 10/06/18 06:32 Apresoline PO 50 mg Q8HR ONELIA Administration Hydralazine HCl 10 mg 10/03/18 18:47 Apresoline IV Q4HR PRN SBP>170 or DBP>110 Sodium Chloride 100 mls @ 999 mls/hr 10/04/18 09:11 Nacl 0.9% IV GUERRERO PRN Hypotension Ondansetron HCl 4 mg 10/03/18 08:51 Zofran IV Q8H PRN Nausea And Vomiting Sodium Chloride 10 ml 10/03/18 10:00 10/06/18 11:14 Sodium Chloride Flush Syringe 10 Ml IV 10 ml BID ONELIA Administration Sodium Chloride 10 ml 10/03/18 08:51 Sodium Chloride Flush Syringe 10 Ml IV PRN PRN LINE FLUSH
[2018-10-07] MEDS: APRESOLINE PO SCH ×3 (05:46→22:19)
[2018-10-07] MEDS: NORVASC PO SCH (10:36)
[2018-10-07] MEDS: LOVENOX SUB-Q SCH (10:37)
[2018-10-07] MEDS: SODIUM CHLORIDE FLUSH SYRINGE 10 ML IV SCH ×2 (10:41→22:20)
--- NOTE | 2018-10-07 12:50 | Progress Note ---
Assessment and Plan Assessment and plan: Hyperkalemia Now resolved after dialysis, and kayexalate given ESRD on hemodialysis Missed dialysis X 2 weeks since he moved here from [place]. Does not have established dialysis center in [place] Nephrology following case management working on arrangements HIV To obtain list of HAART and resume HTN Monitor BP Continue Norvasc his home med list not available Full code status Medically stable for discharge. Awaiting outpatient hemodialysis arrangements. History Interval history: Feels better No SOB currently No chest pain Hospitalist Physical - Physical exam Narrative exam: Gen: Not in acute distress, lying in bed HEENT: Normocephalic, atraumatic Neck: supple, no JVD Heart: S1 and S2 reg, no murmurs, rubs or gallop Lungs: Clear, no crackles Abd: soft, non tender, non distended, normal BS Ext: No edema, no clubbing, no cyanosis, left arm av fistula Neuro: AAO x 3, no focal signs, moves all ext Psych:Normal mood - Constitutional Vitals: Temp Pulse Resp BP Pulse Ox 97.8 F 93 H 20 138/88 99 10/07/18 05:37 10/07/18 10:36 10/07/18 05:37 10/07/18 10:36 10/07/18 05:37 Results - Labs CBC & Chem 7: 10/04/18 05:25 10/04/18 05:25 Labs: Laboratory Last Values WBC 3.8 K/mm3 (4.5-11.0) L 10/04/18 05:25 RBC 2.60 M/mm3 (3.65-5.03) L 10/04/18 05:25 Hgb 8.6 gm/dl (11.8-15.2) L 10/04/18 05:25 Hct 25.6 % (35.5-45.6) L 10/04/18 05:25 MCV 98 fl (84-94) H 10/04/18 05:25 MCH 33 pg (28-32) H 10/04/18 05:25 MCHC 34 % (32-34) 10/04/18 05:25 RDW 18.2 % (13.2-15.2) H 10/04/18 05:25 Plt Count 294 K/mm3 (140-440) 10/04/18 05:25 Lymph % (Auto) 31.6 % (13.4-35.0) 10/04/18 05:25 [place] % (Auto) 14.8 % (0.0-7.3) H 10/04/18 05:25 Eos % (Auto) 1.5 % (0.0-4.3) 10/04/18 05:25 Baso % (Auto) 0.4 % (0.0-1.8) 10/04/18 05:25 Lymph # 1.2 K/mm3 (1.2-5.4) 10/04/18 05:25 [place] # 0.6 K/mm3 (0.0-0.8) 10/04/18 05:25 Eos # 0.1 K/mm3 (0.0-0.4) 10/04/18 05:25 Baso # 0.0 K/mm3 (0.0-0.1) 10/04/18 05:25 Seg Neutrophils % 51.7 % (40.0-70.0) 10/04/18 05:25 Seg Neutrophils # 2.0 K/mm3 (1.8-7.7) 10/04/18 05:25 Sodium 141 mmol/L (137-145) 10/04/18 05:25 Potassium 4.3 mmol/L (3.6-5.0) D 10/04/18 05:25 Chloride 98.1 mmol/L (98-107) 10/04/18 05:25 Carbon Dioxide 26 mmol/L (22-30) D 10/04/18 05:25 Anion Gap 21 mmol/L 10/04/18 05:25 BUN 47 mg/dL (9-20) H 10/04/18 05:25 Creatinine 13.2 mg/dL (0.8-1.5) H 10/04/18 05:25 Estimated GFR 5 ml/min 10/04/18 05:25 BUN/Creatinine Ratio 4 % 10/04/18 05:25 Glucose 75 mg/dL (75-100) 10/04/18 05:25 Calcium 8.4 mg/dL (8.4-10.2) 10/04/18 05:25 Phosphorus 7.10 mg/dL (2.5-4.5) H 10/03/18 00:46 Total Bilirubin 0.20 mg/dL (0.1-1.2) 10/03/18 00:46 AST 26 units/L (5-40) 10/03/18 00:46 ALT 11 units/L (7-56) 10/03/18 00:46 Alkaline Phosphatase 60 units/L (35-129) 10/03/18 00:46 Total Protein 7.8 g/dL (6.3-8.2) 10/03/18 00:46 Albumin 3.6 g/dL (3.9-5) L 10/03/18 00:46 Albumin/Globulin Ratio 0.9 % 10/03/18 00:46 Hepatitis A IgM Ab Non-reactive (NonReactive) 10/03/18 09:13 Hep Bs Antigen Non-reactive (Negative) 10/03/18 09:13 Hep B Core IgM Ab Non-reactive (NonReactive) 10/03/18 09:13 Hepatitis C Antibody Non-reactive (NonReactive) 10/03/18 09:13 Active Medications - Current Medications Current Medications: Generic Name Dose Route Start Last Admin Trade Name Freq PRN Reason Stop Dose Admin Acetaminophen 650 mg 10/03/18 08:51 Tylenol PO Q4H PRN Pain MILD(1-3)/Fever >100.5/BLOOD Acetaminophen/Hydrocodone Bitart 1 each 10/03/18 08:51 10/04/18 22:20 [place] 5/325 PO 1 each Q6H PRN Administration Pain, Moderate (4-6) Albuterol 2.5 mg 10/03/18 08:51 Proventil IH Q4HRT PRN Shortness Of Breath Amlodipine Besylate 5 mg 10/03/18 19:00 10/07/18 10:36 Norvasc PO 5 mg QDAY ONELIA Administration Enoxaparin Sodium 30 mg 10/07/18 10:00 10/07/18 10:37 Lovenox SUB-Q 30 mg QDAY ONELIA Administration Epoetin Jaswant 20,000 unit 10/03/18 15:00 10/05/18 13:01 Procrit IV 20,000 unit .QMWF ONELIA Administration Hydralazine HCl 50 mg 10/03/18 19:00 10/07/18 05:46 Apresoline PO 50 mg Q8HR ONELIA Administration Hydralazine HCl 10 mg 10/03/18 18:47 Apresoline IV Q4HR PRN SBP>170 or DBP>110 Sodium Chloride 100 mls @ 999 mls/hr 10/04/18 09:11 Nacl 0.9% IV GUERRERO PRN Hypotension Ondansetron HCl 4 mg 10/03/18 08:51 Zofran IV Q8H PRN Nausea And Vomiting Sodium Chloride 10 ml 10/03/18 10:00 10/07/18 10:41 Sodium Chloride Flush Syringe 10 Ml IV 10 ml BID ONELIA Administration Sodium Chloride 10 ml 10/03/18 08:51 Sodium Chloride Flush Syringe 10 Ml IV PRN PRN LINE FLUSH
--- NOTE | 2018-10-07 14:13 | Progress Note ---
Assessment and Plan Impression: * End stage renal disease on intermittent HD * Uremia * Hyperkalemia * Hypertension * HIV * Anemia secondary to ESRD * Secondary hyperparathyroidism Plan: * Continue HD MWF * UF as tolerated * Continue antiHTN medications * Renal diet * Binders with meals - PhosLo 3 TID w/ meals * Epogen TIW prn * Patient relocated to [place] from [place]. Outpatient dialysis clinic placement in progress Subjective Date of service: 10/07/18 Interval history: Patient has no complaint Objective - Vital Signs Vital signs: Vital Signs - 12hr 10/07/18 10/07/18 10/07/18 05:37 05:46 10:35 Temperature 97.8 F Pulse Rate 94 H 94 H Respiratory 20 Rate Blood Pressure 137/88 137/88 138/88 O2 Sat by Pulse 99 Oximetry 10/07/18 10:36 Temperature Pulse Rate 93 H Respiratory Rate Blood Pressure 138/88 O2 Sat by Pulse Oximetry - General Appearance General appearance: well-developed, well-nourished EENT: ATNC Respiratory: Present: Clear to Ascultation Cardiology: regular, S1S2 Gastrointestinal: normal, no tenderness, no distended Integumentary: no rash, warm and dry Musculoskeletal: other (no edema) - Lab 10/04/18 05:25 10/04/18 05:25 Most recent lab results Calcium 8.4 mg/dL (8.4-10.2) 10/04/18 05:25 Phosphorus 7.10 mg/dL (2.5-4.5) H 10/03/18 00:46 Medications & Allergies - Medications Allergies/Adverse Reactions: Allergies No Known Allergies Allergy (Verified 01/07/16 11:14) Home Medications: Home Medications Medication Instructions Recorded Confirmed Last Taken Type No Known Home Medications [No 10/03/18 10/03/18 Unknown History Reported Home Medications] Active Medications: Generic Name Dose Route Start Last Admin Trade Name Freq PRN Reason Stop Dose Admin Acetaminophen 650 mg 10/03/18 08:51 Tylenol PO Q4H PRN Pain MILD(1-3)/Fever >100.5/BLOOD Acetaminophen/Hydrocodone Bitart 1 each 10/03/18 08:51 10/04/18 22:20 [place] 5/325 PO 1 each Q6H PRN Administration Pain, Moderate (4-6) Albuterol 2.5 mg 10/03/18 08:51 Proventil IH Q4HRT PRN Shortness Of Breath Amlodipine Besylate 5 mg 10/03/18 19:00 10/07/18 10:36 Norvasc PO 5 mg QDAY ONELIA Administration Enoxaparin Sodium 30 mg 10/07/18 10:00 10/07/18 10:37 Lovenox SUB-Q 30 mg QDAY ONELIA Administration Epoetin Jaswant 20,000 unit 10/03/18 15:00 10/05/18 13:01 Procrit IV 20,000 unit .QMWF ONELIA Administration Hydralazine HCl 50 mg 10/03/18 19:00 10/07/18 05:46 Apresoline PO 50 mg Q8HR ONELIA Administration Hydralazine HCl 10 mg 10/03/18 18:47 Apresoline IV Q4HR PRN SBP>170 or DBP>110 Sodium Chloride 100 mls @ 999 mls/hr 10/04/18 09:11 Nacl 0.9% IV GUERRERO PRN Hypotension Ondansetron HCl 4 mg 10/03/18 08:51 Zofran IV Q8H PRN Nausea And Vomiting Sodium Chloride 10 ml 10/03/18 10:00 10/07/18 10:41 Sodium Chloride Flush Syringe 10 Ml IV 10 ml BID ONELIA Administration Sodium Chloride 10 ml 10/03/18 08:51 Sodium Chloride Flush Syringe 10 Ml IV PRN PRN LINE FLUSH
[2018-10-07] MEDS: PHOSLO PO SCH (18:20)
[2018-10-08] MEDS: NORCO 5/325 PO PRN ×3 (05:38→21:08)
[2018-10-08] MEDS: APRESOLINE PO SCH ×3 (05:42→21:08)
[2018-10-08] MEDS: COLACE PO SCH (06:32)
[2018-10-08] MEDS: PHOSLO PO SCH ×3 (08:00→17:05)
--- NOTE | 2018-10-08 09:03 | Progress Note ---
Subjective Interval history: Patient was seen today for follow-up on multiple renal related issues Events of this hospitalization noted, admitted after missing 2 weeks of dialysis Currently pending dialysis center acceptance Patient denies having any chest pain pressure or shortness of breath Vitals labs intake output medications were reviewed Social history: Reviewed Allergies: Reviewed Family history: Reviewed Physical examination HEENT: Oral mucosa moist no pallor or icterus Neck: Supple no JVD Chest: Clear to auscultation anteriorly CVS: Regular rate and rhythm S1 and S2 heard Abdomen: Soft nontender no suprapubic masses no organomegaly appreciable Extremity: Dry skin less than 1+ peripheral edema Musculoskeletal: No joint effusion noted in knees and ankle Neurological: Alert awake Dermatology: No petechial rashes Fistula: Pulsatile not easily collapsible, sharp bruit Psychiatry: No evidence of any agitation and aggression noted Assessment and plan End-stage renal disease patient will continue with maintenance hemodialysis Monday admitted with missing dialysis treatment for nearly 2 weeks uremia hyperkalemia, will continue with hemodialysis Monday and Monday Metabolic acidosis: To monitor and follow Will consult vascular surgery tomorrow, possible fistulogram Secondary hyperparathyroidism: Continue with calcium acetate Anemia in end-stage renal disease currently on erythropoietin 20,000 unit Monday and Monday current hemoglobin around 8.6 stable will need to follow-up Hypertension: Currently on Norvasc 5 mg once a day as well as hydralazine 50 mg every 8 hours, blood pressure appears to be relatively well-controlled other than diastolic hypertension increase Norvasc to 10 mg Hyperkalemia appears to have resolved 5.8 on October 03 Hyperphosphatemia patient will need a follow-up on the phosphorus level which was 7.1 on October 03 with calcium of 7.6 Malnutrition risk: High consider high protein diet for dialysis patients in general Currently pending outpatient dialysis facility patient has recently relocated to [place] from [place] HIV disease: To follow-up with infectious disease Noncompliance: Adequately counseled and educated prognosis guarded to poor/ mortality risk: High due to dialysis status and noncompliance Patient was adequately counseled and educated regarding multiple renal related issues Pertinent lab findings were discussed with patient, patient does exhibit good understanding of renal issues We'll continue to follow and make recommendation from renal standpoint Objective - Vital Signs Vital signs: Vital Signs - 12hr 10/07/18 10/07/18 10/07/18 22:00 22:19 22:21 Temperature 97.9 F Pulse Rate 101 H 101 H Respiratory 17 17 Rate Respiratory 16 Rate [Head] Blood Pressure 150/87 150/87 O2 Sat by Pulse 99 Oximetry 10/08/18 10/08/18 10/08/18 05:38 05:42 06:38 Temperature 97.4 F L Pulse Rate 92 H Respiratory 19 19 18 Rate Respiratory Rate [Head] Blood Pressure 149/96 O2 Sat by Pulse 98 Oximetry 10/08/18 08:39 Temperature Pulse Rate Respiratory 20 Rate Respiratory Rate [Head] Blood Pressure O2 Sat by Pulse Oximetry - Lab 10/08/18 09:05 10/08/18 09:05 Most recent lab results Calcium 8.4 mg/dL (8.4-10.2) 10/04/18 05:25 Phosphorus 7.10 mg/dL (2.5-4.5) H 10/03/18 00:46 Medications & Allergies - Medications Allergies/Adverse Reactions: Allergies No Known Allergies Allergy (Verified 01/07/16 11:14) Home Medications: Home Medications Medication Instructions Recorded Confirmed Last Taken Type No Known Home Medications [No 10/03/18 10/03/18 Unknown History Reported Home Medications] Active Medications: Generic Name Dose Route Start Last Admin Trade Name Freq PRN Reason Stop Dose Admin Acetaminophen 650 mg 10/03/18 08:51 10/08/18 08:39 Tylenol PO 650 mg Q4H PRN Administration Pain MILD(1-3)/Fever >100.5/BLOOD Acetaminophen/Hydrocodone Bitart 1 each 10/03/18 08:51 10/08/18 05:38 [place] 5/325 PO 1 each Q6H PRN Administration Pain, Moderate (4-6) Albuterol 2.5 mg 10/03/18 08:51 Proventil IH Q4HRT PRN Shortness Of Breath Amlodipine Besylate 5 mg 10/03/18 19:00 10/07/18 10:36 Norvasc PO 5 mg QDAY ONELIA Administration Calcium Acetate 2,001 mg 10/07/18 17:00 10/07/18 18:20 Phoslo PO 2,001 mg TIDWM ONELIA Administration Docusate Sodium 200 mg 10/08/18 05:45 10/08/18 06:32 Colace PO 200 mg DAILY ONELIA Administration Enoxaparin Sodium 30 mg 10/07/18 10:00 10/07/18 10:37 Lovenox SUB-Q 30 mg QDAY ONELIA Administration Epoetin Jaswant 20,000 unit 10/03/18 15:00 10/05/18 13:01 Procrit IV 20,000 unit .QMWF ONELIA Administration Hydralazine HCl 50 mg 10/03/18 19:00 10/08/18 05:42 Apresoline PO 50 mg Q8HR ONELIA Administration Hydralazine HCl 10 mg 10/03/18 18:47 Apresoline IV Q4HR PRN SBP>170 or DBP>110 Sodium Chloride 100 mls @ 999 mls/hr 10/04/18 09:11 Nacl 0.9% IV GUERRERO PRN Hypotension Ondansetron HCl 4 mg 10/03/18 08:51 Zofran IV Q8H PRN Nausea And Vomiting Sodium Chloride 10 ml 10/03/18 10:00 10/07/18 22:20 Sodium Chloride Flush Syringe 10 Ml IV 10 ml BID ONELIA Administration Sodium Chloride 10 ml 10/03/18 08:51 Sodium Chloride Flush Syringe 10 Ml IV PRN PRN LINE FLUSH
--- NOTE | 2018-10-08 09:05 | Progress Note ---
Assessment and Plan Assessment and plan: Patient is 53 yo with HIV, ESRD on hemodialysis. He states that he has missed hemodialysis for 2 weeks, since he moved here from [place]. He presents with shortness of breath, occurs at rest and worse on exertion. He denies chest pain. No diaphoresis. No fever. He was evaluated in ED found to have Creatinine of 22.9 and potassium of 5.9. He was given Kayexalate for hyperkalemia. Patient states he does not have established Hemodialysis Center in [place], [place]. he was admitted, nephrology consulted, was started on dialysis. he is now medically stable, awaiting outpatient dialysis placement. Hyperkalemia Now resolved after dialysis, and kayexalate given ESRD on hemodialysis Missed dialysis X 2 weeks since he moved here from [place]. Does not have established dialysis center in [place] Nephrology following case management working on arrangements HIV To obtain list of HAART and resume HTN urgency Monitor BP Continue Norvasc and Hydralazine his home med list not available Full code status Medically stable for discharge. Awaiting outpatient hemodialysis arrangements. History Interval history: Feels better No SOB currently No chest pain Hospitalist Physical - Physical exam Narrative exam: Gen: Not in acute distress, lying in bed HEENT: Normocephalic, atraumatic Neck: supple, no JVD Heart: S1 and S2 reg, no murmurs, rubs or gallop Lungs: Clear, no crackles Abd: soft, non tender, non distended, normal BS Ext: No edema, no clubbing, no cyanosis, left arm av fistula Neuro: AAO x 3, no focal signs, moves all ext Psych:Normal mood - Constitutional Vitals: Temp Pulse Resp BP Pulse Ox 97.4 F L 92 H 20 149/96 98 10/08/18 05:42 10/08/18 05:42 10/08/18 08:39 10/08/18 05:42 10/08/18 05:42 Results - Labs CBC & Chem 7: 10/08/18 09:05 10/08/18 09:05 Labs: Laboratory Last Values WBC 3.8 K/mm3 (4.5-11.0) L 10/04/18 05:25 RBC 2.60 M/mm3 (3.65-5.03) L 10/04/18 05:25 Hgb 8.6 gm/dl (11.8-15.2) L 10/04/18 05:25 Hct 25.6 % (35.5-45.6) L 10/04/18 05:25 MCV 98 fl (84-94) H 10/04/18 05:25 MCH 33 pg (28-32) H 10/04/18 05:25 MCHC 34 % (32-34) 10/04/18 05:25 RDW 18.2 % (13.2-15.2) H 10/04/18 05:25 Plt Count 294 K/mm3 (140-440) 10/04/18 05:25 Lymph % (Auto) 31.6 % (13.4-35.0) 10/04/18 05:25 [place] % (Auto) 14.8 % (0.0-7.3) H 10/04/18 05:25 Eos % (Auto) 1.5 % (0.0-4.3) 10/04/18 05:25 Baso % (Auto) 0.4 % (0.0-1.8) 10/04/18 05:25 Lymph # 1.2 K/mm3 (1.2-5.4) 10/04/18 05:25 [place] # 0.6 K/mm3 (0.0-0.8) 10/04/18 05:25 Eos # 0.1 K/mm3 (0.0-0.4) 10/04/18 05:25 Baso # 0.0 K/mm3 (0.0-0.1) 10/04/18 05:25 Seg Neutrophils % 51.7 % (40.0-70.0) 10/04/18 05:25 Seg Neutrophils # 2.0 K/mm3 (1.8-7.7) 10/04/18 05:25 Sodium 141 mmol/L (137-145) 10/04/18 05:25 Potassium 4.3 mmol/L (3.6-5.0) D 10/04/18 05:25 Chloride 98.1 mmol/L (98-107) 10/04/18 05:25 Carbon Dioxide 26 mmol/L (22-30) D 10/04/18 05:25 Anion Gap 21 mmol/L 10/04/18 05:25 BUN 47 mg/dL (9-20) H 10/04/18 05:25 Creatinine 13.2 mg/dL (0.8-1.5) H 10/04/18 05:25 Estimated GFR 5 ml/min 10/04/18 05:25 BUN/Creatinine Ratio 4 % 10/04/18 05:25 Glucose 75 mg/dL (75-100) 10/04/18 05:25 Calcium 8.4 mg/dL (8.4-10.2) 10/04/18 05:25 Phosphorus 7.10 mg/dL (2.5-4.5) H 10/03/18 00:46 Total Bilirubin 0.20 mg/dL (0.1-1.2) 10/03/18 00:46 AST 26 units/L (5-40) 10/03/18 00:46 ALT 11 units/L (7-56) 10/03/18 00:46 Alkaline Phosphatase 60 units/L (35-129) 10/03/18 00:46 Total Protein 7.8 g/dL (6.3-8.2) 10/03/18 00:46 Albumin 3.6 g/dL (3.9-5) L 10/03/18 00:46 Albumin/Globulin Ratio 0.9 % 10/03/18 00:46 Hepatitis A IgM Ab Non-reactive (NonReactive) 10/03/18 09:13 Hep Bs Antigen Non-reactive (Negative) 10/03/18 09:13 Hep B Core IgM Ab Non-reactive (NonReactive) 10/03/18 09:13 Hepatitis C Antibody Non-reactive (NonReactive) 10/03/18 09:13 Active Medications - Current Medications Current Medications: Generic Name Dose Route Start Last Admin Trade Name Freq PRN Reason Stop Dose Admin Acetaminophen 650 mg 10/03/18 08:51 10/08/18 08:39 Tylenol PO 650 mg Q4H PRN Administration Pain MILD(1-3)/Fever >100.5/BLOOD Acetaminophen/Hydrocodone Bitart 1 each 10/03/18 08:51 10/08/18 05:38 [place] 5/325 PO 1 each Q6H PRN Administration Pain, Moderate (4-6) Albuterol 2.5 mg 10/03/18 08:51 Proventil IH Q4HRT PRN Shortness Of Breath Amlodipine Besylate 5 mg 10/03/18 19:00 10/07/18 10:36 Norvasc PO 5 mg QDAY ONELIA Administration Calcium Acetate 2,001 mg 10/07/18 17:00 10/07/18 18:20 Phoslo PO 2,001 mg TIDWM ONELIA Administration Docusate Sodium 200 mg 10/08/18 05:45 10/08/18 06:32 Colace PO 200 mg DAILY ONELIA Administration Enoxaparin Sodium 30 mg 10/07/18 10:00 10/07/18 10:37 Lovenox SUB-Q 30 mg QDAY ONELIA Administration Epoetin Jaswant 20,000 unit 10/03/18 15:00 10/05/18 13:01 Procrit IV 20,000 unit .QMWF ONELIA Administration Hydralazine HCl 50 mg 10/03/18 19:00 10/08/18 05:42 Apresoline PO 50 mg Q8HR ONELIA Administration Hydralazine HCl 10 mg 10/03/18 18:47 Apresoline IV Q4HR PRN SBP>170 or DBP>110 Sodium Chloride 100 mls @ 999 mls/hr 10/04/18 09:11 Nacl 0.9% IV GUERRERO PRN Hypotension Ondansetron HCl 4 mg 10/03/18 08:51 Zofran IV Q8H PRN Nausea And Vomiting Sodium Chloride 10 ml 10/03/18 10:00 10/07/18 22:20 Sodium Chloride Flush Syringe 10 Ml IV 10 ml BID ONELIA Administration Sodium Chloride 10 ml 10/03/18 08:51 Sodium Chloride Flush Syringe 10 Ml IV PRN PRN LINE FLUSH
[2018-10-08] MEDS ORDERED: NORVASC PO SCH ×2 (09:10→10:00)
[2018-10-08 10:16] LABS: Calcium 8.2 mg/dL (8.4-10.2)
[2018-10-08 10:38] LABS: Basophils % (Auto) 0.7 % (0.0-1.8); Eosinophils # (Auto) 0.1 K/mm3 (0.0-0.4); Eosinophils % (Auto) 1.7 % (0.0-4.3); Hematocrit 28.4 % (35.5-45.6); Hemoglobin 9.6 gm/dl (11.8-15.2); Lymphocytes # (Auto) 1.5 K/mm3 (1.2-5.4); Lymphocytes % (Auto) 34.8 % (13.4-35.0); Mean Corpuscular HGB Conc 34 % (32-34); Mean Corpuscular Volume 99 fl (84-94); Monocytes # (Auto) 0.6 K/mm3 (0.0-0.8); Monocytes % (Auto) 14.3 % (0.0-7.3); Platelet Count 310 K/mm3 (140-440); Red Blood Count 2.86 M/mm3 (3.65-5.03); Red Cell Distribution Width 18.6 % (13.2-15.2)
[2018-10-08] MEDS ORDERED: NACL 0.9 (PRIMING MACHINE ONLY DIALYSIS) MC ONE (10:59)
[2018-10-08] MEDS: LOVENOX SUB-Q SCH (17:04)
[2018-10-08] MEDS: SODIUM CHLORIDE FLUSH SYRINGE 10 ML IV SCH (21:09)
[2018-10-09] MEDS: APRESOLINE PO SCH ×3 (06:41→21:08)
--- NOTE | 2018-10-09 08:46 | Progress Note ---
Subjective Interval history: Patient was seen today for follow-up on multiple renal related issues Patient was seen on dialysis yesterday He does need fistulogram Patient denies having any chest pain pressure or shortness of breath Vitals labs intake output medications were reviewed Social history: Reviewed Allergies: Reviewed Family history: Reviewed Physical examination HEENT: Oral mucosa moist no pallor or icterus Neck: Supple no JVD Chest: Clear to auscultation anteriorly CVS: Regular rate and rhythm S1 and S2 heard Abdomen: Soft nontender no suprapubic masses no organomegaly appreciable Extremity: Dry skin less than 1+ peripheral edema Musculoskeletal: No joint effusion noted in knees and ankle Neurological: Alert awake Dermatology: No petechial rashes Fistula: Pulsatile not easily collapsible, sharp bruit Psychiatry: No evidence of any agitation and aggression noted Assessment and plan End Stage renal disease continue with hemodialysis Monday Hypertension, will continue to monitor and follow current blood pressure has been around 140/90, discontinue amlodipine and will place the patient on Procardia Fistula appears to have some evidence of stenosis, will consult vascular surgery last fistulogram was approximately 4 months ago Patient reports having prolonged bleeding during last dialysis treatment, Noncompliant patient, pending placement Anemia: Currently improving on erythropoietin Mild leukopenia, anemia improving to monitor and follow Hyponatremia: To monitor and follow. Patient advised to restrict his fluid intake Hyperphosphatemia currently phosphorus is much better control at 3.4 continue with calcium acetate for now Needs to be in high protein diet due to dialysis status HIV disease questionable compliance needs to be seen by infectious disease Metabolic acidosis continue to monitor and follow And very hyperparathyroidism PTH is currently at 371 satisfactory We'll start the patient on calcitriol 0.25 once a day More than 35 minutes was spent in direct patient care today and management of end-stage renal disease, diet lifestyle changes also discussed with patient Prognosis guarded to poor due to noncompliance pending placement We'll continue to follow and make recommendation from renal standpoint Objective - Vital Signs Vital signs: Vital Signs - 12hr 10/08/18 10/08/18 10/09/18 21:08 22:55 06:15 Temperature 98.0 F 97.9 F Pulse Rate 100 H 100 H 93 H Respiratory 20 20 Rate Blood Pressure 146/89 144/86 144/90 O2 Sat by Pulse 98 99 Oximetry 10/09/18 06:41 Temperature Pulse Rate 99 H Respiratory Rate Blood Pressure 144/90 O2 Sat by Pulse Oximetry - Lab 10/08/18 09:05 10/08/18 09:05 Most recent lab results Calcium 8.2 mg/dL (8.4-10.2) L 10/08/18 09:05 Phosphorus 3.40 mg/dL (2.5-4.5) 10/08/18 09:05 Medications & Allergies - Medications Allergies/Adverse Reactions: Allergies No Known Allergies Allergy (Verified 01/07/16 11:14) Home Medications: Home Medications Medication Instructions Recorded Confirmed Last Taken Type No Known Home Medications [No 10/03/18 10/03/18 Unknown History Reported Home Medications] Active Medications: Generic Name Dose Route Start Last Admin Trade Name Freq PRN Reason Stop Dose Admin Acetaminophen 650 mg 10/03/18 08:51 10/08/18 08:39 Tylenol PO 650 mg Q4H PRN Administration Pain MILD(1-3)/Fever >100.5/BLOOD Acetaminophen/Hydrocodone Bitart 1 each 10/03/18 08:51 10/08/18 21:08 [place] 5/325 PO 1 each Q6H PRN Administration Pain, Moderate (4-6) Albuterol 2.5 mg 10/03/18 08:51 Proventil IH Q4HRT PRN Shortness Of Breath Amlodipine Besylate 10 mg 10/08/18 10:00 10/08/18 17:05 Norvasc PO 10 mg DAILY ONELIA Administration Calcium Acetate 2,001 mg 10/07/18 17:00 10/08/18 17:05 Phoslo PO 2,001 mg TIDWM ONELIA Administration Docusate Sodium 200 mg 10/08/18 05:45 10/08/18 06:32 Colace PO 200 mg DAILY ONELIA Administration Enoxaparin Sodium 30 mg 10/07/18 10:00 10/08/18 17:04 Lovenox SUB-Q 30 mg QDAY ONELIA Administration Epoetin Jaswant 20,000 unit 10/03/18 15:00 10/05/18 13:01 Procrit IV 20,000 unit .QMWF ONELIA Administration Hydralazine HCl 50 mg 10/03/18 19:00 10/09/18 06:41 Apresoline PO 50 mg Q8HR ONELIA Administration Hydralazine HCl 10 mg 10/03/18 18:47 Apresoline IV Q4HR PRN SBP>170 or DBP>110 Sodium Chloride 100 mls @ 999 mls/hr 10/04/18 09:11 Nacl 0.9% IV GUERRERO PRN Hypotension Ondansetron HCl 4 mg 10/03/18 08:51 Zofran IV Q8H PRN Nausea And Vomiting Sodium Chloride 10 ml 10/03/18 10:00 10/08/18 21:09 Sodium Chloride Flush Syringe 10 Ml IV 10 ml BID ONELIA Administration Sodium Chloride 10 ml 10/03/18 08:51 Sodium Chloride Flush Syringe 10 Ml IV PRN PRN LINE FLUSH
[2018-10-09] MEDS: NORCO 5/325 PO PRN ×2 (08:47→21:07)
[2018-10-09] MEDS: PHOSLO PO SCH ×3 (08:48→18:09)
[2018-10-09] MEDS ORDERED: PROCARDIA XL PO SCH (10:00)
[2018-10-09] MEDS: LOVENOX SUB-Q SCH (11:45)
[2018-10-09] MEDS: COLACE PO SCH (11:46)
[2018-10-09] MEDS: SODIUM CHLORIDE FLUSH SYRINGE 10 ML IV SCH ×3 (14:58→21:46)
--- NOTE | 2018-10-09 15:46 | Progress Note ---
Assessment and Plan Patient is 53 yo with HIV, ESRD on hemodialysis. He states that he has missed hemodialysis for 2 weeks, since he moved here from [place]. He presents with shortness of breath, occurs at rest and worse on exertion. He denies chest pain. No diaphoresis. No fever. He was evaluated in ED found to have Creatinine of 22.9 and potassium of 5.9. He was given Kayexalate for hyperkalemia. Patient states he does not have established Hemodialysis Center in [place], [place]. he was admitted, nephrology consulted, was started on dialysis. he is now medically stable, awaiting outpatient dialysis placement. Hyperkalemia Now resolved after dialysis, and kayexalate given ESRD on hemodialysis Missed dialysis X 2 weeks since he moved here from [place]. Does not have established dialysis center in [place] Nephrology following case management working on arrangements HIV To obtain list of HAART and resume HTN urgency Monitor BP Continue Norvasc and Hydralazine his home med list not available Full code status Medically stable for discharge. Awaiting outpatient hemodialysis arrangements. Subjective Date of service: 10/09/18 Principal diagnosis: ESRD Interval history: Waiting For Dialysis chair Symptomatically better Objective - Constitutional Vitals: Vital Signs - 12hr 10/09/18 10/09/18 10/09/18 06:15 06:41 09:47 Temperature 97.9 F Pulse Rate 93 H 99 H Respiratory 20 16 Rate Blood Pressure 144/90 144/90 O2 Sat by Pulse 99 Oximetry 10/09/18 10/09/18 14:40 14:54 Temperature 97.8 F Pulse Rate 105 H 105 H Respiratory 16 Rate Blood Pressure 155/93 155/93 O2 Sat by Pulse 97 Oximetry General appearance: Present: no acute distress, well-nourished - EENT Eyes: PERRL, EOM intact ENT: hearing intact, clear oral mucosa Ears: bilateral: normal - Neck Neck: supple, normal ROM - Respiratory Respiratory effort: normal Respiratory: bilateral: CTA - Breasts Breasts: normal - Cardiovascular Heart rate: 78 Rhythm: regular Heart Sounds: Present: S1 & S2. Absent: gallop, rub Extremities: pulses intact, No edema, normal color, Full ROM - Gastrointestinal General gastrointestinal: Present: soft, non-tender, non-distended, normal bowel sounds - Genitourinary Male genitourinary: normal - Integumentary Integumentary: clear, warm, dry - Musculoskeletal Musculoskeletal: 1, strength equal bilaterally - Neurologic Neurologic: moves all extremities - Psychiatric Psychiatric: memory intact, appropriate mood/affect, intact judgment & insight - Labs CBC & Chem 7: 10/08/18 09:05 10/08/18 09:05
[2018-10-10] MEDS: APRESOLINE PO SCH (06:03)
[2018-10-10 06:04] VITALS: BP 160/92
[2018-10-10] MEDS ORDERED: ANCEF/STERILE WATER 2 GM/20 ML 2 GM/20 ML SYRINGE IV NR (08:00)
[2018-10-10] MEDS: PHOSLO PO SCH (08:07)
--- NOTE | 2018-10-10 08:46 | Progress Note ---
Subjective Interval history: Patient was seen today for follow-up on multiple renal related issues pending dialysis clinic symptoms Feeling better with dialysis Patient denies having any chest pain pressure or shortness of breath Vitals labs intake output medications were reviewed Social history: Reviewed Allergies: Reviewed Family history: Reviewed Physical examination HEENT: Oral mucosa moist no pallor or icterus Neck: Supple no JVD Chest: Clear to auscultation anteriorly CVS: Regular rate and rhythm S1 and S2 heard Abdomen: Soft nontender no suprapubic masses no organomegaly appreciable Extremity: Dry skin less than 1+ peripheral edema Musculoskeletal: No joint effusion noted in knees and ankle Neurological: Alert awake Dermatology: No petechial rashes Fistula: Pulsatile not easily collapsible, sharp bruit Psychiatry: No evidence of any agitation and aggression noted Assessment and plan End-stage renal disease patient will continue with maintenance hemodialysis Monday noncompliant patient missed nearly 2 weeks of dialysis Metabolic acidosis: Better Secondary hyperparathyroidism, anemia continue to monitor medical management High mortality risk due to noncompliance with dialysis patient educated Patient appears to be very rude Currently pending outpatient dialysis facility patient has recently relocated to [place] from [place] HIV disease: To follow-up with infectious disease Will need his access evaluated at some point, that can be done outpatient Pertinent lab findings were discussed with patient, patient does exhibit good understanding of renal issues We'll continue to follow and make recommendation from renal standpoint Objective - Vital Signs Vital signs: Vital Signs - 12hr 10/09/18 10/09/18 10/10/18 21:08 23:26 06:00 Temperature 97.8 F 97.7 F Pulse Rate 98 H 101 H 94 H Respiratory 20 20 Rate Blood Pressure 157/99 153/88 160/92 O2 Sat by Pulse 97 99 Oximetry 10/10/18 06:03 Temperature Pulse Rate 93 H Respiratory Rate Blood Pressure 160/92 O2 Sat by Pulse Oximetry - Lab 10/08/18 09:05 10/08/18 09:05 Most recent lab results Calcium 8.2 mg/dL (8.4-10.2) L 10/08/18 09:05 Phosphorus 3.40 mg/dL (2.5-4.5) 10/08/18 09:05 Medications & Allergies - Medications Allergies/Adverse Reactions: Allergies No Known Allergies Allergy (Verified 01/07/16 11:14) Home Medications: Home Medications Medication Instructions Recorded Confirmed Last Taken Type No Known Home Medications [No 10/03/18 10/03/18 Unknown History Reported Home Medications] Active Medications: Generic Name Dose Route Start Last Admin Trade Name Freq PRN Reason Stop Dose Admin Acetaminophen 650 mg 10/03/18 08:51 10/08/18 08:39 Tylenol PO 650 mg Q4H PRN Administration Pain MILD(1-3)/Fever >100.5/BLOOD Acetaminophen/Hydrocodone Bitart 1 each 10/03/18 08:51 10/09/18 21:07 [place] 5/325 PO 1 each Q6H PRN Administration Pain, Moderate (4-6) Albuterol 2.5 mg 10/03/18 08:51 Proventil IH Q4HRT PRN Shortness Of Breath Calcium Acetate 2,001 mg 10/07/18 17:00 10/10/18 08:07 Phoslo PO Not Given TIDWM ONELIA Docusate Sodium 200 mg 10/08/18 05:45 10/09/18 11:46 Colace PO 200 mg DAILY ONELIA Administration Enoxaparin Sodium 30 mg 10/07/18 10:00 10/09/18 11:45 Lovenox SUB-Q 30 mg QDAY ONELIA Administration Epoetin Jaswant 20,000 unit 10/03/18 15:00 10/05/18 13:01 Procrit IV 20,000 unit .QMWF ONELIA Administration Hydralazine HCl 50 mg 10/03/18 19:00 10/10/18 06:03 Apresoline PO 50 mg Q8HR ONELIA Administration Hydralazine HCl 10 mg 10/03/18 18:47 Apresoline IV Q4HR PRN SBP>170 or DBP>110 Sodium Chloride 100 mls @ 999 mls/hr 10/04/18 09:11 Nacl 0.9% IV GUERRERO PRN Hypotension Cefazolin Sodium 2 gm in 20 mls @ 80 mls/hr 10/10/18 08:00 Ancef/Sterile Water 2 Gm/20 Ml IV 10/10/18 23:59 PREOP NR Protocol Nifedipine 30 mg 10/09/18 10:00 10/09/18 11:46 Procardia Xl PO 30 mg QDAY ONELIA Administration Ondansetron HCl 4 mg 10/03/18 08:51 Zofran IV Q8H PRN Nausea And Vomiting Sodium Chloride 10 ml 10/03/18 10:00 10/09/18 21:46 Sodium Chloride Flush Syringe 10 Ml IV 10 ml BID ONELIA Administration Sodium Chloride 10 ml 10/03/18 08:51 Sodium Chloride Flush Syringe 10 Ml IV PRN PRN LINE FLUSH
[2018-10-10] MEDS ORDERED: PROCARDIA XL PO SCH ×2 (08:47→10:00)
--- NOTE | 2018-10-10 14:06 | Discharge Summary ---
Providers - Providers Date of Admission: 10/03/18 12:00 Date of discharge: 10/10/18 Attending physician: MODESTA DUNAWAY 10/03/18 05:04 Consult to Physician [CONS] Stat Comment: Dr. Byers spoke with Dr. Lofton @ [phone] Consulting Provider: ANDREI LOFTON Physician Instructions: Reason For Exam: hyperkalemia 10/09/18 08:46 Consult to Physician [CONS] Routine Comment: Consulting Provider: DENEEN AMBROSE Physician Instructions: Reason For Exam: patient needs fistulogram [facility] Hospital[facility] Condition: Stable Pertinent studies: IMPRESSION: Heart is enlarged. There is focal scarring or atelectasis at the left lung base. There are no infiltrates, effusions or pneumothoraces... This document is electronically signed by Maykel Lucio MD., October 03 2018 12:06:09 AM ET Hospital course: Patient is 53 yo with HIV, ESRD on hemodialysis. He states that he has missed hemodialysis for 2 weeks, since he moved here from [place]. He presents with shortness of breath, occurs at rest and worse on exertion. He denies chest pain. No diaphoresis. No fever. He was evaluated in ED found to have Creatinine of 22.9 and potassium of 5.9. He was given Kayexalate for hyperkalemia. Patient states he does not have established Hemodialysis Center in [place], [place]. he was admitted, nephrology consulted, was started on dialysis. he is now medically stable, awaiting outpatient dialysis placement. Hyperkalemia Now resolved after dialysis, and kayexalate given ESRD on hemodialysis Missed dialysis X 2 weeks since he moved here from [place]. Does not have established dialysis center in [place] Nephrology following case management working on arrangements HIV To obtain list of HAART and resume HTN urgency Monitor BP Continue Norvasc and Hydralazine his home med list not available Full code status Medically stable for discharge. Awaiting outpatient hemodialysis arrangements. Patient leaves AMA before HD chair is arranged Disposition: DC-07 LEFT AGAINST MED ADVICE Core Measure Documentation - Palliative Care Palliative Care/ Comfort Measures: Not Applicable - Core Measures Any of the following diagnoses?: none Exam - Constitutional Vitals: Temp Pulse Resp BP Pulse Ox 97.7 F 93 H 20 160/92 99 10/10/18 06:00 10/10/18 06:03 10/10/18 06:00 10/10/18 06:03 10/10/18 06:00 General appearance: Present: no acute distress, well-nourished - EENT Eyes: Present: PERRL ENT: hearing intact, clear oral mucosa - Neck Neck: Present: supple, normal ROM - Respiratory Respiratory effort: normal Respiratory: bilateral: CTA - Cardiovascular Heart rate: 78 Rhythm: regular Heart Sounds: Present: S1 & S2, systolic murmur. Absent: rub, click - Extremities Extremities: pulses symmetrical, No edema Peripheral Pulses: within normal limits - Abdominal General gastrointestinal: Present: soft, non-tender, non-distended, normal bowel sounds Male genitourinary: Present: normal - Integumentary Integumentary: Present: clear, warm, dry - Musculoskeletal Musculoskeletal: gait normal, strength equal bilaterally - Psychiatric Psychiatric: appropriate mood/affect, intact judgment & insight - Neurologic Neurologic: CNII-XII intact, moves all extremities Plan Follow up with: KELLI SAUCEDO MD [Primary Care Provider] - 3-5 Days Forms: AMA Form
== END 2018-10-10 10:30 | disposition left against medical advice (07) | DRG 640 ==
LOC: ED 21:48 → 3A 10-03 05:05 → OBSVTOIN 10-03 12:00
PROVIDERS: ADMIT Internal Medicine; ATTEND Internal Medicine
PROC: 5A1D70Z Performance of Urinary Filtration, Intermittent, Less than 6 Hours Per Day (ICD-10-PCS; principal; 2018-10-03)
PROC: 5A1D70Z Performance of Urinary Filtration, Intermittent, Less than 6 Hours Per Day (ICD-10-PCS; 2018-10-04)
PROC: 5A1D70Z Performance of Urinary Filtration, Intermittent, Less than 6 Hours Per Day (ICD-10-PCS; 2018-10-05)
PROC: 5A1D70Z Performance of Urinary Filtration, Intermittent, Less than 6 Hours Per Day (ICD-10-PCS; 2018-10-08)
DX: E87.5 Hyperkalemia (principal); N18.6 End stage renal disease; B20 Human immunodeficiency virus [HIV] disease; I12.0 Hypertensive chronic kidney disease with stage 5 chronic kidney disease or end stage renal disease; N25.81 Secondary hyperparathyroidism of renal origin; E87.2 Acidosis; I16.0 Hypertensive urgency; G43.909 Migraine, unspecified, not intractable, without status migrainosus; D63.1 Anemia in chronic kidney disease; E83.39 Other disorders of phosphorus metabolism; Z53.21 Procedure and treatment not carried out due to patient leaving prior to being seen by health care provider; Z99.2 Dependence on renal dialysis
CPT/HCPCS: 36415; 71046; 80048; 80053; 80074; 83970; 84100; 85025; 85027; 93005; 93010; G0378; J0610; J0885; J1650; J1815; J7030